=== PATIENT | female | born 2000 | race Two or more races ===

== ENCOUNTER 2024-04-29 11:47 | Emergency (ER) | payer MEDICAID, SELFPAY ==
[2024-04-29 11:49] VITALS: BMI 26.5
[2024-04-29 12:21] VITALS: BP 111/74; PULSE 90; RESP 16; TEMP 36.9; O2SAT 97
--- NOTE | 2024-04-29 12:31 | PD.EDDENTL ---
ED Dental RME/HPI General Chief complaint: Dental/Oral/Throat Stated complaint: LR tooth infection x 6 days Time Seen by Provider: 04/29/24 12:31 Arrival date/time: 04/29/24 11:47 RME / HPI RME / HPI Narrative: 24-year-old female patient presents emergency department with complaint of right side tooth pain for the past 6 days. Pain is worse with eating and chewing on that side. Patient states she is also 5 weeks . Patient has been taking Tylenol at home without relief. Patient rates pain currently as a 7 out of 10. She denies fever she denies painful swallowing. Teeth map: 1. dental pain Duration: constant Relieving factors: nothing Exacerbating factors: chewing Associated symptoms: gum swelling Treatment prior to arrival: oral analgesic Related Data Previous Rx's ?Medication ?Instructions ?Recorded amoxicillin 500 mg capsule 500 mg PO Q8H #30 caps 04/29/24 Allergies Allergy/AdvReac Type Severity Reaction Status Date / Time No Known Allergies Allergy Verified 04/21/18 12:47 Review of Systems Review of Systems Systems Reviewed: All systems reviewed, normal except as documented Constitutional Constitutional: Reports system reviewed and no additional complaints, except as documented ENT Ears, Nose, Mouth, and Throat: Reports dental pain Cardiovascular Cardiovascular: Reports system reviewed and no additional complaints, except as documented Respiratory Respiratory: Reports system reviewed and no additional complaints, except as documented Musculoskeletal Musculoskeletal: Reports system reviewed and no additional complaints, except as documented Neurologic Neurologic: Reports system reviewed and no additional complaints, except as documented ED Exam General General appearance: Present alert and in no apparent distress Head Head exam: Present atraumatic and normocephalic Eye Eye exam: Present normal appearance and PERRL ENT ENT exam: Present normal exam and normal oropharynx Neck Neck exam: Present normal inspection and full ROM Chest Chest inspection: Present normal inspection and symmetric chest wall rise Respiratory Respiratory exam: Present normal lung sounds bilaterally Cardiovascular Cardiovascular exam: Present regular rate Neurological Exam Neurological exam: Present alert and oriented X3 Course Quality Measures none Vital Signs Vital signs: Vital Signs Temperature 98.5 F 04/29/24 12:21 Pulse Rate 90 04/29/24 12:21 Respiratory Rate 16 04/29/24 12:21 Blood Pressure 111/74 04/29/24 12:21 Pulse Oximetry (%) 97 04/29/24 12:21 Oxygen Delivery Method Room Air 04/29/24 12:21 Dental / Oral MDM Narrative MDM Narrative:: 21-year-old female presents emergency department with right side dental pain secondary to dental infection patient will be DC'd home with oral antibiotics patient remained afebrile nontoxic-appearing throughout ED stay and no signs of Claudio's angina Patient data External records reviewed:: None Clinical information provided by:: none Social determinants that could affect healthcare access:: none Patient has the following chronic illnesses:: na How is presenting disease/condition affected by chronic disease/condition?: uneffected by Evaluation data The following diagnostics were reviewed and interpreted by me:: other (specify) (na) Lab and/or radiology exams considered but not ordered:: na Interpretation Summary: na Medications / Prescriptions Medications or Prescriptions considered but not ordered:: Prescription considered and ordered Medication administrations:: na Consultations Consultation(s) initiated? (list below): No Diagnosis Dental Differential Diagnosis: gingival abscess, dental caries, toothache, dental abscess, fracture of tooth and aphthous ulcer Most likely diagnosis given after review of the tests above:: dental abcess Admission Indicated Admission indicated?: not indicated Admission Request Was there a request for admission?: No Disposition Plan Disposition Plan: Discharge Discharge Attestation Discharge Attestation: The patient and all family members were given an opportunity to ask questions and understood the discharge instructions. Discharge instructions specifically effects, indications for sooner follow up or return to the emergency department, and the expected course of current diagnosis. Patient condition: Stable Discharge Plan Plan Patient Disposition: HOME (Self Care) Prescriptions/Referrals Prescriptions/Med Rec: New amoxicillin 500 mg capsule 500 mg PO Q8H Qty: 30 0RF Problem List Clinical Impression: Pain due to dental caries, Gingivitis Patient/Caregiver Discharge Instructions Education Materials: Understanding Gingivitis, ED Dental Cavity Print Language: [place] Stand Alone Forms: Tanya Award Info., Patient Portal Info Letter
== END 2024-04-29 13:45 | disposition home or self-care (01) ==
LOC: SERX 13:26
PROVIDERS: Emergency Provider Emergency Medicine; PCP Family Medicine
DX: K05.10 Chronic gingivitis, plaque induced (principal); K02.9 Dental caries, unspecified
CPT/HCPCS: 99281

== ENCOUNTER 2024-05-28 10:12 | Emergency (ER) | payer MEDICAID, SELFPAY ==
[2024-05-28 10:14] VITALS: BMI 26.5
[2024-05-28 10:50] VITALS: BP 124/85; PULSE 68; RESP 16; TEMP 36.9; O2SAT 99; BMI 27.1
--- NOTE | 2024-05-28 10:50 | XR_ITS ---
Examination: Complete OB ultrasound, less than 14 weeks, transabdominal Date and time of exam: May 28, 2024 1307 hours INDICATIONS: Vaginal bleeding beginning 2 days ago Technique: Obstetrical ultrasound images less than 14 weeks performed via transabdominal imaging Findings: A normal shaped single intrauterine gestation is present in the uterus. pole 2.7 cm corresponds to 9 weeks 4 days gestational age Cardiac motion 166 BPM Ultrasonographic survey of visible and placental structures unremarkable. Amniotic fluid volume appears appropriate for this estimated gestational age. Right ovary obscured by bowel gas Left ovary 3.8 x 2.8 x 3.6 cm arterial flow 20 mm cyst IMPRESSION: Viable intrauterine gestation 9 weeks 4 days.
--- NOTE | 2024-05-28 10:51 | PD.EDRME ---
Rapid Medical Screening Exam RME Arrival date/time: 05/28/24 10:12 24-year-old female who believes is approximately 9 weeks presents emergency department complaints of vaginal bleeding Chief Complaint: Vaginal Bleeding Time Seen by Provider: 05/28/24 10:32 Vital signs: Vital Signs Temperature 98.4 F 05/28/24 10:50 Pulse Rate 68 05/28/24 10:50 Respiratory Rate 16 05/28/24 10:50 Blood Pressure 124/85 H 05/28/24 10:50 Pulse Oximetry (%) 99 05/28/24 10:50 Oxygen Delivery Method Room Air 05/28/24 10:50
[2024-05-28 11:33] LABS: Collection Type, Urine Clean Catch
[2024-05-28 11:34] LABS: Basophils # (Auto) 0.1 Thou/mm3 (0.0-0.2); Basophils % (Auto) 0 % (0-2.5); Eosinophils # (Auto) 0.2 Thou/mm3 (0.0-0.5); Eosinophils % (Auto) 2 % (0-10); Hematocrit 40.2 % (36.0-46.0); Hemoglobin 13.2 g/dL (12.0-16.0); Immature Granulocytes % (Auto) 1 % (0-0); Immature Granulocytes Auto 0.09 Thou/mm3 (0.00-0.00); Lymphocytes % (Auto) 17 % (10-50); Mean Corpuscular HGB Conc 32.8 g/dl (31.0-37.0); Mean Corpuscular Hemoglobin 28.1 pg (25.0-35.0); Mean Corpuscular Volume 86 fL (80-100); Monocytes # (Auto) 1.1 Thou/mm3 (0.0-0.8); Monocytes % (Auto) 10 % (0-12); Neutrophils # (Auto) 8.1 Thou/mm3 (1.8-7.7); Neutrophils % (Auto) 70 % (37-80); Nucleated Red Blood Cell % 0 /100 WBC (0); Platelet Count 274 Thou/mm3 (140-440); RDW Standard Deviation 44.6 fL (36.4-46.3); White Blood Count 11.6 Thou/mm3 (3.6-11.0)
[2024-05-28 11:53] LABS: Bacteria,Urine Rare; Bilirubin,Urine Negative (Negative); Blood,Urine 2+ (Negative); Clarity,Urine Turbid (Clear/Hazy); Color,Urine Lt-Yellow (Lt Yel-Yel); Glucose, Urine Negative (Negative); Ketones,Urine Negative (Negative); Leukocyte Esterase,Urine Positive (Negative); Nitrite,Urine Negative (Negative); PH,Urine 6.5 (5.0-7.0); Protein,Urine Trace (Neg - Trace); RBC,Urine 140 /hpf (0-3); Specific Gravity,Urine 1.012 (1.001-1.035); Squamous Epithelial Cell,Urine 6 /hpf (0-5); Urobilinogen,Urine Negative mg/dL (0.0-1.0); WBC,Urine 275 /hpf (0-5)
[2024-05-28 12:29] LABS: Alanine Aminotransferase 18 U/L (10-49); Albumin, Serum 4.5 gm/dL (3.5-5.0); Albumin/Globulin Ratio 1.5 (1.2-2.2); Alkaline Phosphatase 80 U/L (46-116); Anion Gap 9 (7-16); Aspartate Amino Transferase 16 U/L (0-34); BUN/Creatinine Ratio 12 Ratio (12-20); Bilirubin,Total 0.4 mg/dL (0.3-1.2); Blood Urea Nitrogen 6 mg/dL (9-23); Calcium 9.7 mg/dL (8.3-10.6); Calcium (Corrected) 9.7 mg/dL (8.5-10.1); Carbon Dioxide 24.2 mMol/L (20.0-31.0); Chloride 103 mMol/L (98-107); Creatinine (Component) 0.5 mg/dL (0.6-1.3); Estimated Creatinine Clearance 163.7 mL/min (>60); Glucose 88 mg/dL (74-106); Osmolality,Calculated 268 (275-295); Potassium 3.9 mMol/L (3.4-5.1); Sodium 136 mMol/L (136-145); Total Protein 7.5 gm/dL (5.7-8.2); eGFR > 60 See Note
[2024-05-28 12:38] LABS: Beta HCG,Quantitative 116054 mIU/mL (<5.0)
[2024-05-28 13:37] VITALS: BP 115/76; PULSE 80; RESP 16; TEMP 36.7; O2SAT 96
--- NOTE | 2024-05-28 13:41 | EDNOTE_ITS ---
ED OB Contraction Preg RMI/HPI General Chief complaint: Vaginal Bleeding Stated complaint: VAG SPOTING 8-9WK PREG Time Seen by Provider: 05/28/24 10:32 Arrival date/time: 05/28/24 10:12 24 year old female present to emergency room with c/o of vaginal bleeding 1-2 days . pt is currently 8-9 weeks . LOCATION: suprapubic SEVERITY: Symptoms are described as being severe with limitations on activities of daily living QUALITY: Symptoms are described as being cramping CONTEXT: The patient is unable to identify any inciting events. DURATION/TIMING: The symptoms started approximately 2 day ago and have been waxing/waning but always present without ever completely resolving. ASSOCIATED SYMPTOMS: The patient is unable to identify any other associated symptoms. MODIFYING FACTORS: The patient is unable to identify any alleviating or aggravating symptoms. PERTINENT ROS: denies trauma denies domestic violence, no dysuria or hematuria, no orthostatic symptoms, no nausea or vomiting, no fevers, no anorexia, no diarrhea or constipation REVIEW OF SYSTEMS: See History of Present Illness - with the exception of those mentioned in the history of present illness, all other systems reviewed and reported as negative GENERAL: In general the patient is awake, interactive, [facility] HEAD/EYES/EARS/NOSE/THROAT: normo-cephalic, atraumatic, mucus membranes are moist, anicteric, palpebral conjunctiva is pink, trachea is midline. CARDIOVASCULAR: regular rate and regular rhythm, no murmurs, heart sounds are not distant, strong pulses in all four extremities that are equal and symmetric bilateral upper and lower extremities, normal capillary refill. CHEST/PULMONARY: normal chest rise and fall, good air movement, clear to auscultation bilaterally, normal inspiratory to expiratory ratios without evidence of respiratory distress. NECK: No midline/Paraspinal tenderness, no step off ROM/Strenght intact No Kernig and bruzinski sign. No trauma ABDOMEN: soft, not tender, no masses appreciated BACK: normal range of motion without pain. NEUROLOGICAL: cranio-facial features are symmetric, moves all four extremities equally without obvious limitations or weakness. EXTREMITY: no tenderness to palpation over the long bones or large joints of the bilateral upper and lower extremities, no joint swelling, no joint erythema, no signs of trauma, no unilateral leg swelling and no peripheral edema. SKIN: warm, dry, well-perfused, no jaundice, no rash, no telangiectasias or pe techia. PSYCH: calm, cooperative, no evidence of psychosis or agitation RME / HPI RME / HPI Narrative: 05/28/24 10:12 24-year-old female who believes is approximately 9 weeks presents emergency department complaints of vaginal bleeding Related Data Previous Rx's ?Medication ?Instructions ?Recorded amoxicillin 500 mg capsule 500 mg PO Q8H #30 caps 09/16 cephalexin 500 mg capsule 500 mg PO QID 10 days #40 ca ps 05/28/24 Allergies Allergy/AdvReac Type Severity Reaction Status Date / Time No Known Allergies Allergy Verified 05/28/24 10:15 Course Course Course Narrative: This patient presents with vaginal bleeding in the first trimester. DDX includes ectopic, IUP, threatened/inevitable , along with completed . Patient is HDS and without a history of coagulopathy or infectious symptoms. Doubt alternate acute emergent pathology. Plan: bHCG, +/- basic labs, type and screen, TVUS, reassess Quality Measures none Orders Category Date Time Status US OB <= 14 weeks fetus Stat Exams 05/28/24 10:50 Completed ABO/RH Type Stat Lab 05/28/24 10:59 Completed Beta HCG,Quantitative Stat Lab 05/28/24 10:59 Completed CBC Stat Lab 05/28/24 10:59 Completed Comprehensive Metabolic Panel Stat Lab 05/28/24 10:59 Completed UA [Urinalysis] Stat Lab 05/28/24 11:20 Completed Urine Culture Stat Lab 05/28/24 11:20 Received cephALEXin [Keflex] Med 05/28/24 13:56 Discontinued 500 mg PO X1 ONE Reevaluation(s) Reevaluation #1: pt is comfortable to start oral antibiotic for possible UTI vs early kidney infection, first dose of keflex 500mg given prior to discharge. Vital Signs Vital signs: Vital Signs Temperature 98.4 F 05/28/24 10:50 Pulse Rate 68 05/28/24 10:50 Respiratory Rate 16 05/28/24 10:50 Blood Pressure 124/85 H 05/28/24 10:50 Pulse Oximetry (%) 99 05/28/24 10:50 Oxygen Delivery Method Room Air 05/28/24 10:50 Vaginal Bleeding Patient data External records reviewed:: [facility] previous records Clinical information provided by:: patient Social determinants that could affect healthcare access:: none Patient has the following chronic illnesses:: none How is presenting disease/condition affected by chronic disease/condition?: no chronic disease Evaluation data The following diagnostics were reviewed and interpreted by me:: lab results and radiology exam(s) Lab and/or radiology exams considered but not ordered:: none Interpretation Summary: US: A normal shaped single intrauterine gestation is present in the uterus. pole 2.7 cm corresponds to 9 weeks 4 days gestational age Cardiac motion 166 BPM Ultrasonographic survey of visible and placental structures unremarkable. Amniotic fluid volume appears appropriate for this estimated gestational age. Right ovary obscured by bowel gas Left ovary 3.8 x 2.8 x 3.6 cm arterial flow 20 mm cyst IMPRESSION: Viable intrauterine gestation 9 weeks 4 days. cbc/cmp wnl hc urine: + rbc/wbc possible infection Medications / Prescriptions Medications or Prescriptions considered but not ordered:: none Medication administrations:: Medication Administration History Discontinued Medications Cephalexin HCl (Cephalexin 250 Mg Capsule) 500 mg PO X1 ONE Stop: 05/28/24 13:57 none Consultations Consultation(s) initiated? (list below): No Diagnosis Vaginal Bleeding Differential Diagnosis: missed , threatened , dysfunctional uterine bleeding, vaginal bleeding and other (, UTI, ) Most likely diagnosis given after review of the tests above:: vag bleeding Admission Indicated Admission indicated?: not indicated Admission Request Was there a request for admission?: No Disposition Plan Disposition Plan: Discharge Discharge Attestation Discharge Attestation: The patient and all family members were given an opportunity to ask questions and understood the discharge instructions. Discharge instructions specifically effects, indications for sooner follow up or return to the emergency department, and the expected course of current diagnosis. Patient condition: Stable Discharge Plan Plan Patient Disposition: HOME (Self Care) Health Concerns: Follow with PMD/OB as directed Return to ED if sx worsen Prescriptions/Referrals Prescriptions/Med Rec: New cephalexin 500 mg capsule 500 mg PO QID 10 Days Qty: 40 0RF No Action amoxicillin 500 mg capsule 500 mg PO Q8H Qty: 30 0RF Referrals: James Green MD [Primary Care Provider] - In 1 week Problem List Clinical Impression: Vaginal bleeding during , UTI (urinary tract infection) Patient/Caregiver Discharge Instructions Education Materials: Understanding Urinary Tract ..., Bleeding During Early Print Language: [place] Stand Alone Forms: Tanya Award Info., Patient Portal Info Letter
[2024-05-28] MEDS: cephALEXin 250 MG CAPSULE 500 MG PO (14:01)
== END 2024-05-28 14:08 | disposition home or self-care (01) ==
PROVIDERS: Nurse Practitioner Primary Care; Emergency Provider Emergency Medicine; PCP Family Medicine
DX: O20.9 Hemorrhage in early pregnancy, unspecified (principal); Z3A.09 9 weeks gestation of pregnancy; O23.41 Unspecified infection of urinary tract in pregnancy, first trimester; N83.202 Unspecified ovarian cyst, left side; O34.81 Maternal care for other abnormalities of pelvic organs, first trimester
CPT/HCPCS: 36415; 76801; 80053; 81001; 84702; 85025; 86900; 86901; 87077; 87086; 87186; 99284; A9270

== ENCOUNTER 2024-10-18 12:44 | Observation (INO) | payer MEDICAID, SELFPAY ==
[2024-10-18] VITALS (8 sets, daily range): BP systolic 103–118; BP diastolic 69–74; PULSE 73–89; RESP 16–100; TEMP 36.8; BMI 32.0
[2024-10-18 14:04] LABS: Basophils # (Auto) 0.1 Thou/mm3 (0.0-0.2); Basophils % (Auto) 1 % (0-2.5); Eosinophils # (Auto) 0.2 Thou/mm3 (0.0-0.5); Eosinophils % (Auto) 1 % (0-10); Hematocrit 33.9 % (36.0-46.0); Hemoglobin 11.6 g/dL (12.0-16.0); Immature Granulocytes % (Auto) 5 % (0-0); Immature Granulocytes Auto 0.61 Thou/mm3 (0.00-0.00); Lymphocytes # (Auto) 1.6 Thou/mm3 (1.0-4.8); Lymphocytes % (Auto) 13 % (10-50); Mean Corpuscular HGB Conc 34.2 g/dl (31.0-37.0); Mean Corpuscular Hemoglobin 29.1 pg (25.0-35.0); Mean Corpuscular Volume 85 fL (80-100); Monocytes % (Auto) 8 % (0-12); Neutrophils # (Auto) 8.9 Thou/mm3 (1.8-7.7); Neutrophils % (Auto) 73 % (37-80); Nucleated Red Blood Cell % 0 /100 WBC (0); Platelet Count 233 Thou/mm3 (140-440); RDW Standard Deviation 42.7 fL (36.4-46.3); Red Blood Count 3.98 Miln/mm3 (4.00-5.20); White Blood Count 12.3 Thou/mm3 (3.6-11.0)
== END 2024-10-18 14:30 | disposition home or self-care (01) ==
PROVIDERS: Admitting Provider Obstetrics & Gynecology; Visit Provider Obstetrics & Gynecology
DX: O26.893 Other specified pregnancy related conditions, third trimester (principal); Z3A.30 30 weeks gestation of pregnancy; H53.8 Other visual disturbances; R42 Dizziness and giddiness
CPT/HCPCS: 36415; 59025; 59899; 85025

== ENCOUNTER 2025-01-01 01:35 | Inpatient (IN) | payer MEDICAID, SELFPAY ==
[2025-01-01] VITALS (94 sets, daily range): BP systolic 103–141; BP diastolic 54–91; PULSE 60–80; RESP 16–19; TEMP 36.7–37.4; O2SAT 95–100; BMI 33.5
[2025-01-01 02:23] LABS: Basophils # (Auto) 0.1 Thou/mm3 (0.0-0.2); Basophils % (Auto) 1 % (0-2.5); Eosinophils # (Auto) 0.2 Thou/mm3 (0.0-0.5); Eosinophils % (Auto) 2 % (0-10); Hematocrit 33.9 % (36.0-46.0); Hemoglobin 10.9 g/dL (12.0-16.0); Immature Granulocytes Auto 0.23 Thou/mm3 (0.00-0.00); Lymphocytes # (Auto) 2.3 Thou/mm3 (1.0-4.8); Lymphocytes % (Auto) 20 % (10-50); Mean Corpuscular HGB Conc 32.2 g/dl (31.0-37.0); Mean Corpuscular Hemoglobin 26.9 pg (25.0-35.0); Mean Corpuscular Volume 84 fL (80-100); Monocytes # (Auto) 1.0 Thou/mm3 (0.0-0.8); Monocytes % (Auto) 9 % (0-12); Neutrophils # (Auto) 7.4 Thou/mm3 (1.8-7.7); Neutrophils % (Auto) 66 % (37-80); Nucleated Red Blood Cell # 0.00 Thou/mm3 (0.00-0.00); Nucleated Red Blood Cell % 0 /100 WBC (0); Platelet Count 274 Thou/mm3 (140-440); RDW Standard Deviation 45.3 fL (36.4-46.3); Red Blood Count 4.05 Miln/mm3 (4.00-5.20); White Blood Count 11.1 Thou/mm3 (3.6-11.0)
[2025-01-01] MEDS: RINGERS LACTATED 1000 ML 1,000 ML 999 ML IV ×4 (02:23→19:30)
--- NOTE | 2025-01-01 02:24 | XR_ITS ---
Examination: Complete OB ultrasound greater than 14 weeks Date and time of exam: January 01, 2025, 0242 hrs. Indications: Preop labor induction, unknown size and dates. Findings: Viable intrauterine gestation vertex presentation. Cardiac motion 131 BPM. Estimated weight 3988 g. Amniotic fluid index 15.3 cm. Impression: Viable intrauterine gestation vertex presentation.
[2025-01-01 02:57] LABS: Syphilis Nonreactive (Nonreactive)
[2025-01-01 03:57] LABS: Amphetamine/Metham Scrn,Ur OB Negative (Negative); Benzoylecgonine Screen, Ur OB Negative (Negative); Opiate Screen,Urine OB Negative (Negative); THC Screen,Urine OB Negative (Negative)
--- NOTE | 2025-01-01 04:15 | PRELIM_ITS ---
Obstetric ultrasound. January 01, 2025 0242 hours Clinical history: Presentation, EFW, SEKOU. Comparison: No prior study is available for comparison. Findings: Single live intrauterine gestation. heart rate is 131 bpm. Amniotic fluid index is 15.3 cm. Ultrasound gestational age is 39 weeks 6 days, weight 3988 g ??590 g. Presentation is vertex Impression: Unremarkable intrauterine gestation. Report Electronically Signed By: Barrington Dunlap 01/01/2025 4:14:59 AM [EST]
--- NOTE | 2025-01-01 06:54 | ESHP_ITS ---
Documentation for date of: 01/01/25 OB Labor/Induct. HPI History of Present Illness : 1 Term pregnancies: 0 pregnancies: 0 Living children: 0 History of Abortions: Spontaneous and Elective: 0 History of sections: No History of : No Date of last menstrual period: 03/20/24 TONI: 12/25/24 Gestational age based on last menstrual period: 41 History of present illness: H and P dictated on STAT line in [facility] #9. [id number]. EFW 8'12 Labs Labs: Positive: Rubella Titre and Group Beta Strep, Negative: RPR, Hepatitis B, HIV, Chlamydia and Gonorrhea and Unknown: Herpes Type 1, Herpes Type 2 and Covid-19 Past Medical History Surgical History SURGICAL: Negative Section Meds Home Medications and Allergies Home Medications ?Medication ?Instructions ?Recorded ?Confirmed ?Type vitamins no.159-iron tab PO 10/18/24 History fumarate 28 mg-folic acid 800 mcg tablet Allergies Allergy/AdvReac Type Severity Reaction Status Date / Time No Known Allergies Allergy Verified 01/01/25 03:50 OB Exam Physical Exam Vital signs: Temp Pulse Resp BP 98.2 F 77 16 124/84 01/01/25 02:30 01/01/25 01:52 01/01/25 01:39 01/01/25 01:52 OB Results Labs 01/01/25 02:03 Labs: Short CBC 01/01/25 Range/Units 02:03 WBC 11.1 H (3.6-11.0) Thou/mm3 Hgb 10.9 L (12.0-16.0) g/dL Hct 33.9 L (36.0-46.0) % Plt Count 274 (140-440) Thou/mm3
--- NOTE | 2025-01-01 11:22 | ESHP_ITS ---
RE: BRY ARORA : 2000 DATE OF ADMISSION: 01/01/2025 HISTORY OF PRESENT ILLNESS: This is a 24-year-old 1, para 0 with due date of 12/25/2024 with intrauterine at 41 weeks and 0 days, who presents to labor and delivery for induction of labor for post-dates. She denies any leaking or bleeding. She reports normal movements. She also reports occasional contractions. She was treated for a group B strep urinary tract infection on 07/26/2024. An ultrasound done on admission shows cephalic with estimated weight 3988 grams. ALLERGIES: NO KNOWN DRUG ALLERGIES. MEDICATIONS: multivitamin 1 p.o. daily. SOCIAL HISTORY: She is . She denies any alcohol, drug use or smoking. PAST MEDICAL HISTORY: Urinary tract infection due to group B strep in 07/2024. PAST SURGICAL HISTORY: Denies. FAMILY HISTORY: Denies. REVIEW OF SYSTEMS: She denies any chest pain, palpitations, cough, fever, flank pain, shortness of breath, or lower extremity pain. She denies any headache, change in vision or right upper quadrant pain. PHYSICAL EXAMINATION: VITAL SIGNS: Blood pressure 124/78, heart rate 88, respirations 18, temperature 98.6. HEENT: Oropharynx and sclerae are clear. LUNGS: Clear to auscultation bilaterally. HEART: Regular rate and rhythm. ABDOMEN: Gravid, term size consistent with estimated weight 8 pounds 12 ounces. PELVIC: See RN notes. EXTREMITIES: Nontender. SKIN: No gross rashes or lesion. NEUROLOGIC: No focal deficits. ASSESSMENT AND PLAN: Intrauterine of 41 weeks and 0 days, post-dates induction, anticipate spontaneous vaginal delivery. Informed consent was obtained. Informed consent was obtained. The patient was made aware of the risks, complications, alternatives, and benefits of operative vaginal delivery and delivery and agrees with these modes of delivery if indicated. She is aware of the increased risk of shoulder dystocia and its catastrophic neurological sequelae and the patient was made aware that she can choose to proceed with delivery at any time. At this time, she likes to proceed with a trial of labor. DT: 06:53:27 TT: 07:14:00 Ref: [id number] - TID: [id number] [facility]
[2025-01-01] MEDS: Ampicillin Inj 2,000 MG in SODIUM CHLORIDE 0.9% (POP) 100 ML 200 MG IV (17:11)
--- NOTE | 2025-01-01 19:06 | PD.LDPN ---
Documentation for date of: 01/01/25 OB Labor Progress Note Pain Control Comments: None Pelvic Exam Dilation (cm): 4 Effacement (%): 60 station: -3 Amniotic membrane status: Ruptured Comments: Per RN exam. Contractions Monitor mode: External Contraction frequency: 1-5 Contraction intensity: Moderate Status status: Category ll Assessment and Plan Comments: IUPC FSE Pitocin augmenation if MVU's not adequate.
[2025-01-01] MEDS: Ampicillin Inj 1,000 MG in SODIUM CHLORIDE 0.9% (Popper) 50 ML 50 MG IV (21:28)
[2025-01-01] MEDS: OXYTOCIN in NS 30 units 30 UNIT/500 ML BAG IV (23:56)
[2025-01-02] VITALS (97 sets, daily range): BP systolic 97–133; BP diastolic 53–91; PULSE 60–84; RESP 15–21; TEMP 36.3–37.2; O2SAT 95–99
[2025-01-02] MEDS: Ampicillin Inj 1,000 MG in SODIUM CHLORIDE 0.9% (Popper) 50 ML 50 MG IV (01:21)
[2025-01-02] MEDS: RINGERS LACTATED 1000 ML 1,000 ML 999 ML IV (01:30)
--- NOTE | 2025-01-02 04:50 | PD.LDPN ---
Documentation for date of: 01/02/25 OB Labor Progress Note Pain Control Comments: Epidural Pelvic Exam Dilation (cm): 5 Effacement (%): 70 station: 0 Amniotic membrane status: Ruptured Contractions Monitor mode: Internal Contraction frequency: 2-5 Contraction pattern: Coupling Contraction intensity: Moderate Status status: Category ll Assessment and Plan Comments: Arrest of dilatation delivery Informed consent was obtained. The patient was made aware of the risks, complications, alternatives and benefits of the proposed procedure and she agrees.
--- NOTE | 2025-01-02 04:54 | ESOP_ITS ---
Operative Note - [employer] PROVIDER Procedure Date of procedure: 01/02/25 Procedure Performed: Primary Low Transverse Section via Pfanensteil Skin Incision Indication: IUP 41w1d Postdates Induction of Labor Active Labor Arrest of Dilitation Pre-Op diagnosis: IUP 41w2d Postdates Induction of Labor Active Labor Arrest of Dilitation Post-Op diagnosis: IUP 41w1d Postdates Induction of Labor Active Labor Arrest of Dilitation Endometriosis Stage 1 Anesthesia type: Epidural Procedure description: After proper informed consent was obtained and the patient was made aware of the risks, complications, alternatives and benefits of the proposed procedure she was taken to the operating room where she underwent induction of spinal anesthesia. She was prepped and draped in the usual sterile fashion. A timeout was performed.? A Pfannenstiel skin incision was made with the scalpel and carried through to the underlying layer of fascia with the Bovie. The fascia was nicked in the midline incision and the incision was extended bilaterally with the Bovie. The inferior aspect of the fascial incision was grasped with Lisandro clamps elevated and the underlying rectus muscle dissected off with the Bovie. The superior aspect the fascial incision was grasped with Lisandro clamps elevated and the underlying rectus muscle dissected off with the Bovie. The rectus muscles were in the midline. The peritoneum was grasped between 2 Barrera clamps and entered sharply with the Metzenbaum scissors. The peritoneum was extended superiorly and inferiorly with good visualization of the bladder. The vesicouterine peritoneum was incised transversely and the bladder flap created digitally. A Norwood blade was inserted. A low transverse incision was made in the uterus with a scapel and the incision was extended digitally. The infant's head delivered and the mouth and nose were suctioned with the bulb suction. The shoulder and body delivered atraumatically. The cord was clamped after 30 second delayed cord clamping and the cord was cut.? The infant was handed off to the waiting Pediatric staff, cord blood was collected for lab testing. The placenta was removed complete and intact. The uterus was exteriorized and cleared of all clots and debris. The uterine incision was closed with #1-0 chromic catgut suture in a running interlocking fashion. A second layer of the same suture was used to imbricate the first layer and obtain excellent hemostasis. The vesicouterine peritoneum was closed with 2-0 chromic catgut suture in a running fashion. The firm uterus was returned to the abdomen. The gutters were cleared of all clots and debris. The peritoneum was closed with 0 chromic catgut suture in running fashion. The rectus muscle was closed with 0 chromic catgut suture. The fascia was closed with 0 Vicryl beginning at each angle and ending in the center in a running fashion. The subcutaneous tissue was irrigated with warmed normal saline solution and found to be hemostatic. The subcutaneous tissue was closed with 2-0 chromic catgut suture in a running fashion. The skin was closed with 4-0 Monocryl. A Dermabond Prineo dressing was applied and a sterile pressure dressing was applied.? She tolerated the procedure well. Counts were correct. I discussed with the patient the nature of her condition, intraoperative findings and expectation for recovery all? questions answered. Specimen: none Findings: Viable female infant APGARS 8/9 Weight 3880g Amniotic fluid clear Cephalic. Placenta removed complete and intact Uterus, ovaries and tubes wnl. Endometriotic implants on ovaries and uterosacral ligaments. Complications: other (Uterine atony responding to Pitocin, Methergine, Cytotec and TXA. ) Surgical staff Marty EASON Diagnosis Problem List Completed Was Problem List Reviewed/Reconciled?: Yes
[2025-01-02] MEDS: FAMOTIDINE INJ 10 MG/ML VIAL 2 ML 20 MG IV (04:59)
[2025-01-02] MEDS: ceFAZolin/D5W 2 GM IV 2 GM/100 ML BAG IV (04:59)
[2025-01-02] MEDS: OXYTOCIN in NS 20 units 20 UNIT/1,000 ML BAG 125 UNIT IV ×2 (08:05→15:49)
[2025-01-02] MEDS: KETOROLAC INJ 30 MG/ML VIAL IVP ×2 (08:06→20:10)
[2025-01-02 12:22] LABS: Basophils # (Auto) 0.1 Thou/mm3 (0.0-0.2); Basophils % (Auto) 0 % (0-2.5); Eosinophils # (Auto) 0.0 Thou/mm3 (0.0-0.5); Eosinophils % (Auto) 0 % (0-10); Hematocrit 33.0 % (36.0-46.0); Hemoglobin 10.5 g/dL (12.0-16.0); Immature Granulocytes Auto 0.12 Thou/mm3 (0.00-0.00); Lymphocytes # (Auto) 2.2 Thou/mm3 (1.0-4.8); Lymphocytes % (Auto) 13 % (10-50); Mean Corpuscular HGB Conc 31.8 g/dl (31.0-37.0); Mean Corpuscular Hemoglobin 27.1 pg (25.0-35.0); Mean Corpuscular Volume 85 fL (80-100); Monocytes # (Auto) 1.3 Thou/mm3 (0.0-0.8); Monocytes % (Auto) 8 % (0-12); Neutrophils # (Auto) 13.3 Thou/mm3 (1.8-7.7); Neutrophils % (Auto) 78 % (37-80); Nucleated Red Blood Cell # 0.00 Thou/mm3 (0.00-0.00); Nucleated Red Blood Cell % 0 /100 WBC (0); Platelet Count 254 Thou/mm3 (140-440); RDW Standard Deviation 46.5 fL (36.4-46.3); Red Blood Count 3.88 Miln/mm3 (4.00-5.20); White Blood Count 17.0 Thou/mm3 (3.6-11.0)
[2025-01-02] MEDS: RINGERS LACTATED 1000 ML 1,000 ML 100 ML IV (23:10)
[2025-01-03] MEDS: IBUPROFEN TAB 400 MG TABLET 800 MG PO (02:51)
[2025-01-03 03:42] VITALS: BP 122/77; PULSE 82; RESP 19; TEMP 36.6; O2SAT 97
--- NOTE | 2025-01-03 06:47 | ESPR_ITS ---
RE: BRY ARORA : 2000 DATE OF SERVICE: 01/03/2025 SUBJECTIVE: Postop day #1, the patient denies any problem or complaint. She is voiding. She is ambulating. She is tolerating diet. She is passing flatus. She denies any excessive vaginal bleeding. She denies any dizziness or lightheadedness. She denies any chest pain, palpitations, shortness of breath or lower extremity pain. OBJECTIVE: Vital Signs: Blood pressure is 122/77, heart rate 82, respirations 19, temperature 97.8, pulse oximetry 97% on room air. Lungs: Clear to auscultation bilaterally. Heart: Regular rate and rhythm. Abdomen: Incision clear and intact. Fundus is firm. Extremities: Nontender. LABORATORY DATA: Hemoglobin pre-delivery is 10.9, post-delivery is 10.5. ASSESSMENT: Postop day #1, status post delivery. PLAN: Encourage ambulation, discontinue IV, support, remove dressing, possible discharge home tomorrow. DT: 06:09:58 TT: 06:47:00 Ref: [id number] - TID: [id number]
[2025-01-03] MEDS: DOCUSATE SOD 100 MG CAPSULE PO (07:59)
[2025-01-03 08:00] VITALS: BP 101/67; PULSE 65; RESP 15; TEMP 36.4; O2SAT 98
[2025-01-03] MEDS: Milk Of Magnesia Susp 30 ML UDC PO (08:15)
[2025-01-03] MEDS: SIMETHICONE 80 MG CHEW PO (08:15)
--- NOTE | 2025-01-03 10:16 | PC.SS ---
CATALOGUE ILLUSTRATOR conducted bedside contact with the patient to address nursing referral indicating patient p late to care at 18 weeks.? CATALOGUE ILLUSTRATOR introduced self and role.? At bedside with patient was Chaz VARGAS.? Patient gave permission for FOB to be present during discussion.? CATALOGUE ILLUSTRATOR relayed basis of referral.? Patient confirmed late to care due to inability to schedule OB appointment. Patient then made OB appointment however was in the waiting list with Dr. Gilbert. OB services provided by Dr. Gilbert.? Patient reports compliance with OB appointments.? Patient does not have history of anxiety or depression.?? Patient denies history of mental health.? Patient denies history of self-harm behaviors or psychiatric placement.?.? Infant, Latoya is the patient?s first child.? Infant delivered via .? Patient interacting appropriately with infant, at the time SS entered the room mother was breast-feeding the infant. Patient plans on combo feeding the .?Patient is aligned with WIC only and is not receiving TANF or SNAP.? Patient denies history of alcohol/drug use.? Patient denies episodes of domestic violence.? Patient has access to appropriate supplies and equipment.? FOB will provide transportation upon discharge.? Patient describes possessing support system consisting of FOB and extended family.? CATALOGUE ILLUSTRATOR provided community resources to include [employer] and [employer] [facility].? No further intervention required at this time, social insurance administrator will be available to address any further concerns.? CATALOGUE ILLUSTRATOR updated bedside nurse.?
[2025-01-03] MEDS: KETOROLAC INJ 30 MG/ML VIAL IVP (14:16)
[2025-01-03 16:00] VITALS: BP 122/85; PULSE 95; RESP 17; TEMP 36.7; O2SAT 98
[2025-01-03] MEDS: HYDROcodone/APAP 5/325 TABLET 1 TAB PO (19:42)
[2025-01-03 20:00] VITALS: BP 130/88; PULSE 87; RESP 17; TEMP 36.7; O2SAT 100
[2025-01-04 04:00] VITALS: BP 105/67; PULSE 81; RESP 16; TEMP 36.7; O2SAT 98
--- NOTE | 2025-01-04 05:56 | PD.LDPPPRG ---
Subjective Subjective Interval history: Patient denies any primary complaints Exam Vital Signs Temp Pulse Resp BP Pulse Ox O2 Del Method 98.1 F 81 16 105/67 98 Room Air 01/04/25 04:00 01/04/25 04:00 01/04/25 04:00 01/04/25 04:00 01/04/25 04:00 01/04/25 04:00 Routine Respiratory Exam Comments: Clear to auscultation bilaterally Routine Cardiovascular Exam Comments: Regular rate and rhythm Routine Abdominal Exam Comments: Incision clear and intact, fundus is firm, nondistended Routine Extremities Exam Comments: Nontender Objective Labs 01/02/25 11:36 Assessment & Plan Assessment Comment Assessment comment: day #2 Postop day #2 status post delivery Discharge home discharge instructions given follow-up in the office in 1 week Time Spent With Patient Time: Total time spent is greater than 50% in coordination of care (as documented) at patient's floor/unit and/or counseling patient:
--- NOTE | 2025-01-04 05:58 | OBDSUM_ITS ---
Data (Sharp) Data Hx Section: No : 1 Term: 0 : 0 Livin Abortions: Spontaneous & Theraputic: 0 Delivery Data (Sharp) Labor Data Initiation of labor: Induction Induction/Augmentation Agent: Cervidil and Pitocin ROM date: 01/01/25 ROM time: 16:40 Amniotic membrane rupture type: Spontaneous Amniotic fluid description: Clear Delivery Data EDC: 12/25/24 EDC calculated by:: LMP/early US confirmation Onset of labor date: 01/01/25 Onset of labor time: 20:00 delivery date: 01/02/25 Arnold delivery time: 05:32 Gestational age (weeks): 41 Gestational age (days): 1 Placenta delivery date: 01/02/25 Placenta delivery time: 05:32 Delivered by: geiling Delivery nurse: mary luciano rn. Neworn nurse: nina montemayor. Pot Lining Supervisor at delivery: Yes (dr. tan.) Support person(s) at delivery: Chaz- jorge lb. Other staff at delivery: tiffany boone OR tech. Mary Vargas CRNA. Delivery Method Delivery method: Low Transverse Presentation: Vertex position: OP Anesthesia Type Anesthesia Type: Epidural Anesthesia type: Epidural Placenta Placenta delivery description: Manual Removal Cord blood sent to lab: Yes cord blood collection: Cord Blood Type Episiotomy Episiotomy description: None EBL Estimated blood loss (ml): 600 Umbilical Cord cord description: 3 Vessels Complications Complications: None Data (Sharp) Arnold Data Arnold's gender: Female Identification band number: [id number] weight (gms): 8 lb 8.863 oz Weight (pounds): 8 lbs and 8.9 ozs 1 minute: 8 5 minutes: 9
--- NOTE | 2025-01-04 05:58 | PD.LDDS ---
DS: Providers Provider Date of admission: 01/01/25 01:35 Primary care physician: Physician No Primary/Family Admitting Provider: Marty Gilbert MD Attending Provider on Admission: Marty Gilbert MD Consults: 01/02/25 06:39 Referral Routine Comment: Attending Provider on DC: Marty Gilbert MD Discharging Provider: Marty Gilbert MD DS: Diagnosis Problem List Completed Was Problem List Reviewed/Reconciled?: Yes Summary/Hosp Course Brief History: H and P dictated on STAT line in [facility] #9. [id number]. EFW 8'12 Peripartum Data Delivery Method: Low Transverse Episiotomy Description: None Procedures: Procedures Operation Date: 01/02/25 05:30 Actual Procedure Side Surgeon p in OB Bilateral Marty Gilbert MD Time Spent with Patient Time attestation: Total time spent providing and/or coordinating discharge services: Exam Vital Signs Temp Pulse Resp BP Pulse Ox O2 Del Method 98.1 F 81 16 105/67 98 Room Air 01/04/25 04:00 01/04/25 04:00 01/04/25 04:00 01/04/25 04:00 01/04/25 04:00 01/04/25 04:00 Discharge Plan Plan Patient Disposition: HOME (Self Care) Patient condition on transfer: Stable Prescriptions/Referrals Prescriptions/Med Rec: New hydrocodone-acetaminophen 5-325 mg tablet 1 tab PO Q6H MDD 4 PRN (Reason: pain) Qty: 20 0RF No Action PNV [id number] acid 28 mg iron- 800 mcg tablet 1 tab PO QDAY Referrals: No Primary/Family,Physician [Primary Care Provider] Patient/Caregiver Discharge Instructions Discharge Activity: activity as tolerated Other Discharge Activity Instructions:: Follow up office 1 week. Print Language: Vietnamese Stand Alone Forms: Tanya Award Info., Patient Portal Info Letter Planned Discharge Date 01/04/25
[2025-01-04] MEDS: ACETAMINOPHEN 325 MG TABLET 650 MG PO (07:15)
[2025-01-04 08:00] VITALS: BP 107/71; PULSE 84; RESP 19; TEMP 36.9; O2SAT 97
[2025-01-04] MEDS: DOCUSATE SOD 100 MG CAPSULE PO (08:23)
[2025-01-04 12:00] VITALS: BP 124/82; PULSE 73; RESP 18; TEMP 36.6; O2SAT 98
[2025-01-04] MEDS: IBUPROFEN TAB 400 MG TABLET 800 MG PO (13:08)
== END 2025-01-04 15:15 | disposition home or self-care (01) | DRG 540 ==
LOC: S4SX 01-02 04:52 → S4NX 01-02 05:46
PROVIDERS: Admitting Provider Specialist; Visit Provider Specialist
PROC: 10D00Z1 Extraction of Products of Conception, Low, Open Approach (ICD-10-PCS; CPT 59514; principal; 2025-01-02 05:15)
DX: O48.0 Post-term pregnancy (principal); Z37.0 Single live birth; Z3A.41 41 weeks gestation of pregnancy; O62.0 Primary inadequate contractions; O34.83 Maternal care for other abnormalities of pelvic organs, third trimester; N80.103 Endometriosis of bilateral ovaries, unspecified depth; N80.3C3 Endometriosis of bilateral uterosacral ligament(s), unspecified depth
CPT/HCPCS: 36415; 59409; 76805; 80307; 85025; 86780; 86850; 86900; 86901; 94762; A4217; A4649; J0290; J0689; J1885; J2210; J2250; J2274; J2371; J2405; J2590; J2795; J3010; J3490; J7050; J7120; S0191; A9270; J2270; J7999